=== PATIENT | male | born 1995 ===

== ENCOUNTER 2021-01-10 15:47 | Emergency (ER) | payer OTHER ==
[~2021-01-10] VITALS: Ht 167.6 cm; Wt 70.6 kg
--- NOTE | 2021-01-10 16:26 | NUR ---
LARS ELMORE NOW AT BS FOR EXAM
--- NOTE | 2021-01-10 16:27 | NUR ---
PT REPORTS LOSS OF TASTE TODAY; HE'S UNSURE IF HE'S HAD A FEVER, LOSS OF SMELL. REPORTS SOME MUSCLE PAIN. USED MARIJUANA TODAY.
[2021-01-10] MEDS ORDERED: LISD50CA3 PO (16:36)
[2021-01-10] MEDS ORDERED: BUPR-173 PO (16:36)
[2021-01-10] MEDS ORDERED: LISD20CA4 PO (16:37)
--- NOTE | 2021-01-10 16:43 | NUR ---
PT ENDORSED TO BREAK RN. AWAITING POC
--- NOTE | 2021-01-10 17:25 | NUR ---
PT REPORT FROM SKYLAR CLEVELAND RN. PT CARE TO BE RESUMED.
[2021-01-10 18:05] VITALS: BP 107/64
--- NOTE | 2021-01-10 18:08 | NUR ---
REGISTRATION REQUESTED PT'S CONTACT NUMBER. CELL: [phone]
== END 2021-01-10 18:10 | disposition home or self-care (01) ==
LOC: ED 18:04
DX: R00.0 Tachycardia, unspecified (principal); Z20.822 Contact with and (suspected) exposure to COVID-19; F12.10 Cannabis abuse, uncomplicated; R06.02 Shortness of breath; R43.8 Other disturbances of smell and taste; R43.9 Unspecified disturbances of smell and taste
CPT/HCPCS: 93005; 99284; U0003